=== PATIENT | female | born 1955 | race Two or more races ===

== ENCOUNTER 2023-04-11 06:23 | Day surgery (SDC) | payer OTHER ==
[2023-03-28 10:02] LABS: INR 0.95; PARTIAL THROMBOPLASTIN TIME 27.6 SECONDS (22.0-34.0)
[~2023-04-11 06:23] MED LIST: HUMALOG100 UNIT/1; JARDIANCE10 MG PO; LANTUS SOL100 UNIT/1; METFORMIN HCL500 M3 PO
[2023-04-11] MEDS ORDERED: CEFOXITIN SODIUM 2,000 MG VIAL IV ONE ×2 (07:24→09:15)
[2023-04-11] MEDS ORDERED: POVIDONE-IODINE 118 ML BOTT TOP ONE ×2 (07:24→09:15)
[2023-04-11] MEDS ORDERED: MORPHINE SULFATE 4 MG/ML VIAL IV PRN (09:00)
[2023-04-11] MEDS ORDERED: PROMETHAZINE HCL 50 MG/ML AMPUL IM ONE (09:00)
[2023-04-11] MEDS ORDERED: NAPR500T14 PO (09:01)
[2023-04-11] MEDS ORDERED: PROMETHAZINE HCL 50 MG/ML AMPUL ONE (11:47)
== END 2023-04-11 13:00 | disposition home or self-care (01) ==
LOC: CIR.AMB 06:23
PROVIDERS: ATTEND Obstetrics & Gynecology
DX: C53.0 Malignant neoplasm of endocervix (principal); C79.82 Secondary malignant neoplasm of genital organs